=== PATIENT | male | born 1985 | race African-American/Black ===

== ENCOUNTER 2023-01-24 18:58 | Emergency (ER) | payer OTHER ==
[2023-01-24] MEDS ORDERED: Sodium Chloride 0.9% 2.5 ML Syringe FLUSH PRN (20:34)
[2023-01-24] MEDS ORDERED: Sodium Chloride 0.9% 10 ML Syringe FLUSH PRN (20:34)
[2023-01-24] MEDS ORDERED: Ondansetron 4 MG/2 ML SDV IVPUSH STA (20:37)
[2023-01-24] MEDS ORDERED: Morphine 4 MG/ML Syringe IVPUSH STA ×2 (20:37→23:19)
[2023-01-24 21:27] LABS: BASOPHILS ABSOLUTE AUTO 0.1 K/uL (0.0-0.1); BASOPHILS PERCENT AUTO 0.7 % (0.0-1.5); EOSINOPHILS ABSOLUTE AUTO 0.2 K/uL (0.0-0.7); EOSINOPHILS PERCENT AUTO 2.2 % (0.0-7.0); HEMATOCRIT 29.6 % (38.0-50.0); HEMOGLOBIN 10.3 g/dL (13.0-17.0); LYMPHOCYTES ABSOLUTE AUTO 3.2 K/uL (0.6-2.4); LYMPHOCYTES PERCENT AUTO 30.6 % (16.0-40.0); MEAN CORPUSCULAR HEMOGLOBIN 23.2 pg (27.0-32.0); MEAN CORPUSCULAR HGB CONC 34.8 g/dL (31.0-37.0); MONOCYTES ABSOLUTE AUTO 0.7 K/uL (0.0-0.8); MONOCYTES PERCENT AUTO 6.4 % (0.0-15.0); NEUTROPHILS ABSOLUTE AUTO 6.3 K/uL (1.4-5.7); NEUTROPHILS PERCENT AUTO 60.1 % (48.0-80.0); NRBC ABSOLUTE 0 K/uL; PLATELET COUNT,PLT 175 K/uL (150-400); RED BLOOD CELL COUNT 4.44 M/uL (4.50-5.90)
[2023-01-24 21:40] LABS: A/G RATIO 0.7 (0.9-1.6); ALBUMIN 2.9 g/dL (3.4-5.0); BILIRUBIN TOTAL 0.2 mg/dL (0.2-1.0); CALCIUM 7.8 mg/dL (8.5-10.1); CARBON DIOXIDE,CO2 26.6 mmol/L (21.0-32.0); CREATININE 11.1 mg/dL (0.8-1.3); EST CRCL DRUG DOSING (CG) 7.93 mL/min; POTASSIUM,K 3.1 mmol/L (3.5-5.1)
[2023-01-24 21:56] LABS: MEAN CORPUSCULAR VOLUME 66.7 fL (80.0-98.0)
[2023-01-24] MEDS ORDERED: Iopamidol 755 MG/ML 500 ML Multipack Bottle IVPUSH STA (22:33)
[2023-01-24 22:55] LABS: BODY FLUID TYPE PER
[2023-01-24 23:11] LABS: APPEARANCE,BODY FLUID CLEAR; COLOR,BODY FLUID COLORLESS; MONONUCLEAR, BODY FLUID 92 %; POLYMORPHONUCLEAR, BODY FLUID 8 %; RBC,BODY FLUID < 3000 /uL; WBC BODY FLUID 25 /uL
[2023-01-24 23:32] LABS: APPEARANCE,URINE CLEAR; BILIRUBIN,URINE NEGATIVE (NEGATIVE); COLOR,URINE YELLOW; GLUCOSE,URINE >=1000 mg/dL (NEGATIVE); KETONES,URINE NEGATIVE (NEGATIVE); LEUKOCYTE ESTERASE,URINE NEGATIVE (NEGATIVE); NITRITE,URINE NEGATIVE (NEGATIVE); OCCULT BLOOD,URINE MODERATE (NEGATIVE); PH,URINE 5.5 (5.0-8.0); PROTEIN,URINE >=300 mg/dL (NEGATIVE); UROBILINOGEN,URINE 0.2 EU/dL (<2.0)
[2023-01-24] MEDS ORDERED: Potassium Chloride 20 MEQ Tab.ER PO STA (23:38)
[2023-01-24 23:41] LABS: AMORPHOUS SEDIMENT,URINE FEW (NEGATIVE); BACTERIA,URINE FEW (NEGATIVE); EPITHELIAL CELLS,URINE FEW (NONE-FEW); RBC,URINE 0-1 (0-2/HPF)
== END 2023-01-25 00:22 | disposition home or self-care (01) ==
LOC: MW.ED 18:58
DX: R10.84 Generalized abdominal pain (principal); I12.9 Hypertensive chronic kidney disease with stage 1 through stage 4 chronic kidney disease, or unspecified chronic kidney disease; E13.22 Other specified diabetes mellitus with diabetic chronic kidney disease; N18.9 Chronic kidney disease, unspecified; E66.9 Obesity, unspecified; Z68.41 Body mass index [BMI] 40.0-44.9, adult; Z86.16 Personal history of COVID-19; Z79.899 Other long term (current) drug therapy
CPT/HCPCS: 36415; 74177; 80053; 81001; 83605; 83690; 85025; 87040; 89050; 96374; 96375; 96376; 99284; A9270; J2270; J2405; J3490; Q9967

== ENCOUNTER 2023-05-27 06:22 | Emergency (ER) | payer OTHER ==
[2023-05-27] MEDS ORDERED: Ondansetron 4 MG/2 ML SDV IVPUSH ONE (06:36)
[2023-05-27 06:49] LABS: BASOPHILS PERCENT AUTO 0.5 % (0.0-1.5); EOSINOPHILS ABSOLUTE AUTO 0.1 K/uL (0.0-0.7); EOSINOPHILS PERCENT AUTO 1.3 % (0.0-7.0); HEMOGLOBIN 11.5 g/dL (13.0-17.0); LYMPHOCYTES ABSOLUTE AUTO 1.5 K/uL (0.6-2.4); LYMPHOCYTES PERCENT AUTO 19.4 % (16.0-40.0); MEAN CORPUSCULAR HEMOGLOBIN 22.7 pg (27.0-32.0); MEAN CORPUSCULAR HGB CONC 32.9 g/dL (31.0-37.0); MONOCYTES ABSOLUTE AUTO 0.3 K/uL (0.0-0.8); MONOCYTES PERCENT AUTO 3.9 % (0.0-15.0); NEUTROPHILS ABSOLUTE AUTO 5.6 K/uL (1.4-5.7); NEUTROPHILS PERCENT AUTO 74.9 % (48.0-80.0); NRBC ABSOLUTE 0 K/uL; RED BLOOD CELL COUNT 5.07 M/uL (4.50-5.90); WHITE BLOOD CELL COUNT,WBC 7.53 K/uL (4.0-11.0)
[2023-05-27 07:02] LABS: PLATELET COUNT,PLT 165 K/uL (150-400)
[2023-05-27] MEDS ORDERED: Morphine 4 MG/ML Syringe IVPUSH ONE (07:04)
[2023-05-27 07:19] LABS: CARBON DIOXIDE,CO2 25.7 mmol/L (21.0-32.0); CREATININE 8.9 mg/dL (0.8-1.3); EST CRCL DRUG DOSING (CG) 9.79 mL/min; POTASSIUM,K 3.1 mmol/L (3.5-5.1)
[2023-05-27 07:22] LABS: BILIRUBIN DIRECT 0.1 mg/dL (0.0-0.5); BILIRUBIN INDIRECT 0.3; BILIRUBIN TOTAL 0.4 mg/dL (0.2-1.0)
[2023-05-27] MEDS ORDERED: Potassium Chloride 20 MEQ Tab.ER PO ONE (07:23)
[2023-05-27] MEDS ORDERED: Sodium Chloride 0.9% 500 ML IV ONE (07:30)
[2023-05-27] MEDS: Potassium Chloride 100 ML IV SCH ×2 (07:34→09:46)
[2023-05-27] MEDS ORDERED: droPERidol 5 MG/2 ML SDV IVPUSH ONE ×3 (07:36→15:12)
[2023-05-27] MEDS ORDERED: HYDROmorphone 1 MG/ML Syringe IVPUSH ONE (07:37)
[2023-05-27 07:41] LABS: BICARBONATE,VENOUS 29 mEq/L (23-28); PCO2 VENOUS 44 mmHG (41-51); PH,VENOUS 7.43 (7.31-7.41)
[2023-05-27 07:42] LABS: PO2 VENOUS < 30 mmHG
[2023-05-27 07:48] LABS: BODY FLUID TYPE DIAL
[2023-05-27 08:26] LABS: APPEARANCE,BODY FLUID CLEAR; COLOR,BODY FLUID COLORLESS; RBC,BODY FLUID < 3000 /uL; WBC BODY FLUID 5 /uL
[2023-05-27 08:27] LABS: POLYMORPHONUCLEAR, BODY FLUID 20 %
[2023-05-27 08:28] LABS: MONONUCLEAR, BODY FLUID 80 %
[2023-05-27 08:29] LABS: GLUCOSE,BODY FLUID 661 mg/dL
[2023-05-27] MEDS ORDERED: hydrALAZINE 20 MG/ML SDV IVPUSH ONE ×3 (09:03→17:54)
[2023-05-27 09:17] LABS: PROTEIN,BODY FLUID <2.0 g/dL
[2023-05-27] MEDS ORDERED: Magnesium Sulfate/Water 2 GM in Premix Bag 1 BAG IV ONE (09:31)
[2023-05-27] MEDS ORDERED: Insulin Regular, Human 100 Units/ML 10 ML Vial IVPUSH ONE (09:31)
[2023-05-27 12:32] LABS: CALCIUM 7.5 mg/dL (8.5-10.1); CARBON DIOXIDE,CO2 22.2 mmol/L (21.0-32.0); EST CRCL DRUG DOSING (CG) 9.68 mL/min; POTASSIUM,K 3.8 mmol/L (3.5-5.1)
[2023-05-27] MEDS ORDERED: amLODIPine 5 MG Tab PO ONE (14:17)
[2023-05-27] MEDS ORDERED: Lisinopril 10 MG Tab PO ONE (14:17)
[2023-05-27 14:19] LABS: HEMOGLOBIN A1C 12.4 %
[2023-05-27] MEDS ORDERED: Labetalol 100 MG/20 ML MDV IVPUSH ONE (17:09)
[2023-05-27] MEDS ORDERED: hydrALAZINE 20 MG/ML SDV IVPUSH STA (19:31)
== END 2023-05-27 20:00 ==
LOC: MW.ED 06:22
DX: E10.65 Type 1 diabetes mellitus with hyperglycemia (principal); R11.10 Vomiting, unspecified; I10 Essential (primary) hypertension; E66.9 Obesity, unspecified; Z68.41 Body mass index [BMI] 40.0-44.9, adult; Z91.148 Patient's other noncompliance with medication regimen for other reason; Z86.16 Personal history of COVID-19; Z79.899 Other long term (current) drug therapy; Z20.822 Contact with and (suspected) exposure to COVID-19
CPT/HCPCS: 36415; 74176; 80048; 82009; 82247; 82248; 82803; 82945; 82947; 83036; 83605; 83735; 84157; 84450; 84460; 85025; 87635; 89050; 93005; 96365; 96366; 96368; 96375; 96376; 99285; A9270; J0360; J1170; J1790; J2270; J2405; J3475; J3480; J3490; J7040; 93010; 99291; J1815-GY; U0002